=== PATIENT | female | born 2000 | race Caucasian/White ===

== ENCOUNTER 2025-04-07 08:16 | Outpatient (AMB) | payer BC, SELFPAY ==
--- NOTE | 2025-04-07 08:19 | A.OFFVIS_ITS ---
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 regarding abnormal Pap smear showing ascus-H with LGSIL changes in background, no prior Pap history. 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 Sexual orientation: Straight/Heterosexual Gender identity: Female Female Reproductive History Menstrual Age of Menarche: 12 Duration of menses: 3-5 days Date of last menstrual period: 03/08/25 control method: pills Total pregnancies: 0 Review of Systems Const All systems reviewed & are unremarkable except as noted in HPI and below Reports as per HPI and Reports no additional complaints GI Reports no additional complaints Reports no additional complaints Assessment & Plan Assessment & Plan (1) Atypical squamous cells cannot exclude high grade squamous intraepithelial lesion on cytologic smear of vagina (ASC-H): Comment: With LGSIL cells In background Code(s): R87.621 - Atypical squamous cells cannot exclude high grade squamous intraepithelial lesion on cytologic smear of vagina (ASC-H) Category: Medical Plan: Discussed with the patient the result of her abnormal pap, its significance, risk of progression, persistence, and regression. the false positive/negative rate of a Pap smear as a screening test in detecting cervical cancer and the indication for a diagnostic test -colposcopy, biopsy, endocervical curettage. The patient verbalized understanding and agreed with the plan, all questions answered. We will request the report of the Pap smear and schedule colposcopy in few days pending the receipt of the Pap smear report Coding Level of Care Code New Pt Level 3 (83958) Diagnoses Atypical squamous cells cannot exclude high grade squamous intraepithelial lesion on cytologic smear of vagina (ASC-H) R87.621
[2025-04-07 08:24] VITALS: BP 112/68; BMI 26.5
--- OUTSIDE RECORDS SUMMARY | 2025-04-07 08:39 | XMS_ITS | Patient Health Record ---
Author Organization [facility] Address [address] [place] [address] Care Team Providers Care Speech Language Pathologist Prn Name Role Phone KALE SANCHEZ [facility] [phone] Allergies Allergen (clinical drug ingredient) Drug/Non Drug Allergy documented on EMR Reaction Allergy Type Onset Date Status Shellfish (FN) shell fish (uncoded) Unknown Allergy Active Tree nut tree nut (uncoded) Unknown Allergy A ctive peanut allergenic extract Peanut (Diagnostic) Unknown Drug Allergy Active Results Component Value Reference Range Flag Notes IGP,rfx Apt HPV ASCU,16/18,4 Reviewed date:02/23/2025 01:39:22 PM Interpretation:ASC-H, LSIL background Performing Lab:[facility], [address] [place] [address], Phone - [phone], Director - [facility] Notes/Report: Clinical Information:SRC:Cervix [id number] DIAGNOSIS: A EPITHELIAL CELL ABNORMALITY. ATYPICAL SQUAMOUS CELLS CANNOT EXCLUDE A HIGH-GRADE SQUAMOUS INTRAEPITHELIAL LESION (ASC-H). 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 Specimen adequacy: Satisfactory for evaluation. Endocervical and/or squamous metaplastic cells (endocervical component) are present. Clinician provided ICD10: Z01.419 Z11.51 Performed by: Riddhi solorio, Education Spec (ASCP) Electronically signed by: Tigist Escobar MD, Pathologist . . Pathologist provided ICD10: R87.611, R87.612 Note: The Pap smear is a screening test designed to aid in the detection of premalignant and malignant conditions of the uterine cervix. It is not a diagnostic procedure and should not be used as the sole means of detecting cervical cancer. Both false-positive and false-negative reports do occur. . Test Methodology: This liquid based ThinPrep(R) pap test was screened with the use of an image guided system. . The HPV DNA reflex criteria were not met with this specimen result therefore, no HPV testing was performed. . PDF Report Reviewed date:03/02/2025 12:44:13 PM Interpretation:PDF Performing Lab:[facility], [address] [place] [address], Phone - [phone], Director - [facility] Notes/Report: Clinical Information:SRC:Cervix [id number] Ct/GC FRANCIA, Pharyngeal-[id number] Reviewed date:11/14/2024 08:52:30 AM Interpretation:Negative Performing Lab:[facility] [place], [address], [place], Phone - [phone], Director - [facility] Notes/Report: C. trachomatis, FRANCIA, Pharyn Negative Negative N. gonorrhoeae, FRANCIA, Pharyn Negative Negative HCV Antibody RFX to Quant PC [id number] Reviewed date:11/13/2024 03:50:50 PM Interpretation:Negative Performing Lab:[facility] [place], [address], [address], [place], Phone - [phone], Director - [facility] Notes/Report: HCV Ab Non Reactive Non Reactive Interpretation: Not infected with HCV unless early or acute infection is suspected (which may be delayed in an immunocompromised individual), or other evidence exists to indicate HCV infection. HIV Ab/p24 Ag with Reflex-[id number] Reviewed date:11/13/2024 03:51:06 PM Interpretation:Negative Performing Lab:[facility] [place], [address], [address], [place], Phone - [phone], Director - [facility] Notes/Report: HIV Ab/p24 Ag Screen Non Reactive Non Reactive HIV-1/HIV-2 antibodies and HIV-1 p24 antigen were NOT detected. There is no laboratory evidence of HIV infection. HIV Negative T pallidum Screening Whitley -[id number] Reviewed date:11/13/2024 03:51:14 PM Interpretation:Negative Performing Lab:[facility] [place], [address], [place], Phone - [phone], Director - [facility] Notes/Report: T pallidum Antibodies Non Reactive Non Reactive Interpretation: Syphilis: Treponemal Antibodies with Reflex to RPR and RPR Titer, Reverse Screening and Diagnosis Algorithm Treponemal Treponemal Ab RPR, Qn Ab, TPPA Final Interpretation -------- Non N/A N/A No laboratory evidence Reactive of syphilis. Retest in 2-4 weeks if recent exposure is suspected. -------- Reactive Non Non Treponemal antibodies Reactive Reactive not confirmed. Inconclusive for syphilis; potential early syphilis, possible false positive. Retest in 2-4 weeks if recent exposure is suspected. -------- Reactive Non Reactive Treponemal antibodies Reactive detected. Consistent with past or current (potential early) syphilis. -------- Reactive >/=1:1 N/A Treponemal and nontreponemal antibodies detected. Consistent with current or past syphilis. Hepatitis B Surf Ab Quant-[id number] Reviewed date:11/13/2024 03:44:27 PM Interpretation:Not Immune Performing Lab:[facility], [address], [address], [place], Phone - [phone], Director - [facility] Notes/Report: Hepatitis B Surf Ab Quant <3.5 Immunity>10 mIU/mL L Status of Immunity Anti-HBs Level Inconsistent with Immunity 0.0 - 10.0 Consistent with Immunity >10.0 HBsAg Screen-[id number] Reviewed date:11/13/2024 03:50:57 PM Interpretation:Negative Performing Lab:[facility] [place], [address], [address], [place], Phone - [phone], Director - [facility] Notes/Report: HBsAg Screen Negative Negative Test, Urine Reviewed date:11/12/2024 02:44:02 PM Interpretation:Negative Performing Lab: Notes/Report: Negative Test, Urine neg Lot # [id number] Exp. Date 08/18/2025 Reason For Referral Reason 24 yr old with first pap of ASC-H with low grade cell changes in background. No prior pap history. For colposcopy per guidelines. Diagnosis 1 Unspecified abnormal cytological findings in specimens from cervix uteri (R87.619) Referral Organization [facility] Referring Provider First Name KALE Referring Provider Last Name LAURA Referring Provider Speciality Certified Nurse Double End Trimmer Referred Provider Specialty Supply Coordinator General Notes KALE SANCHEZ 09:13:02 AM EDT > [facility] Clinical Notes Aliya Gonzalez 2024 12:14:50 PM EDT > referral printed and to be faxed Referral Priority Routine Medications Medication SIG (Take, Route, Frequency, Duration) Notes Start Date End Date Status Ortho Micronor 0.35 MG Tablet 1 tablet Orally Once a day; Duration: 84 days 11/12/2024 Active SUMAtriptan Active Venlafaxine HCl Acti ve Social History Sex Assigned At : Social History Observation Description Sex Assigned At Female Social History HIV Risk Assessment Social Info Question Answer Notes Additional Questions Is an HIV Risk Assessment being c onducted? Yes Have you been tested for HIV before? No Did you have a blood transfusion prior to 1985? No Do you have an unlicensed body piercing or tattoo? Yes Reproductive Life Plan: Social Info Question Answer Notes Reproductive Life Plan: Do you want to have chil dren? No, I don't want to have children Human Trafficking: Social Info Question Answer Notes Human Trafficking Experienced: No PrEP for HIV: Social Info Question Answer Notes PrEP for HIV Is the client edita hays in beginning/continuing PrEP for HIV? No Sexual History: Social Info Question Answer Notes Sexual History: Sexual History Reviewed: Partner s, Practices, Protection/Past STIs Currently sexually active? Yes Sexually active with: Men, Women Your sexual activities include: anal intercourse, oral intercourse, vaginal intercourse Do you use condoms? No Date of last unprotected intercourse: 02/09/2025 Number of partners in past 3 months: 8 Number of partners in past year: 12 Does your partner(s) currently have any STIs? No Counseling Provided: Social Info Question Answer Notes Counseling Provided Please indicate the length of time, in minutes, that counseling was provided. 8 Counseling Was Provided By: jean paul Drugs/Alcohol: Social Info Question Answer Notes Drug/Alcohol Use Do you or have you used drugs? Yes, c urrently By what route are you taking drugs? Please check all that apply: Smoking Which drug(s) do you smoke? Marijuana Do you or have you used alcohol? Yes, currently Socially Food Access: Social Info Question Answer Notes Food Access The Client's current access to food is Secure Food Access Relationships: Social Info Question Answer Notes Relationships Has the client exper ienced any of the following: Client has never experienced harmful relationships Housing Social Info Question Answer Notes Housing The client's current living situation is: stable housing Tobacco Use: Social Info Question Answer Notes Tobacco Use: Do you/have you used tobacco? Yes, radha degroot How long have you been smoking (years)? 7 not often How many cigarettes do you smoke per day? 0 - 10 Tobacco Smoking Status Current some day smoker Section Notes: Aptima/ bw Vital Signs Blood pressure diastolic 78 mm Hg 02/13/2025 Height 5'6 in 02/13/2025 Blood pressure systolic 118 mm Hg 02/13/2025 Weight 160 lbs 02/13/2025 BMI 25.82 kg/m2 02/13/2025 Encounters Encounter Location Date Provider Diagnosis [address] [id number] 11/12/2024 KALE SANCHEZ Encounter for scre ening for infections with a predominantly sexual mode of transmission Z11.3 ; Visit for initial script of pills Z30.011 ; Counseling, unspecified Z71.9 ; Other problems related to lifestyle Z72.89 ; Encounter for test, result negative Z32.02 ; HIV Screening Z11.4 and Encounter for screening for other [facility] [facility] [id number] 02/13/[facility]25 KALE SANCHEZ Encounter for gynecological examination (general) (routine) without abnormal findings Z01.419 ; Visit for pill refill/surveillance Z30.41 and HPV Pap Screening [facility]11.[address] [facility] [id number] [facility] [phone] 02/23/[facility]25 KALE SANCHEZ Assessments Encounter Date Diagnosis (ICD Code) Assessment Notes Treatment Notes Treatment Clinical Notes Section Notes 11/12/2024 Encounter for screening for infections with a predominantly sexual mode of transmission (ICD-10 - Z11.3) Discussed STI risks, screenings that are available through [facility] and safe sex. Clt aware of lab processing times and how to view results on portal and how positive results will be communicated Need 2 out of 3 Sections from A-C Section A) Problems (only need one from below) Section B) Data (need at least one of the following categories in this section) Category 1: (Choose three of the following): Order Unique tests Section C) Risk (any one of the following) Prescription drug management (this counts for the whole section) 11/12/2024 Visit for initial script of pills (ICD-10 - Z30.011) Discussed control options. CHC's CI'd due to migraines with aura. Clt desires POP's start. Reviewed benefits and risks. Clt aware of the time sensitivity of POP's. May quick start with BUM x 2 days Need 2 out of 3 Sections from A-C Section A) Problems (only need one from below) Section B) Data (need at least one of the following categories in this section) Category 1: (Choose three of the following): Order Unique tests Section C) Risk (any one of the following) Prescription drug management (this counts for the whole section) 02/13/2025 Encounter for gynecological examination (general) (routine) without abnormal findings (ICD-10 - Z01.419) Discussed routine screenings and self breast/chest awareness. Reviewed family hx of BR Cancer- I do recommend clt discuss genetic screening with mom and get more details of what they may have had done- clt may want to consider screening. Pap guidelines reviewed and pap collected. Routine screening in 3 years if normal Reviewed report of mild urgency/frequenc y- encouraged to stay hydrated and caution with bladder irritants such as caffeine/ETOH. If continued concerns around urgency/frequenc y can provide with uro/stationary engineer supervisor referral for further evaluation as well as can consider pelvic floor referral 02/13/2025 Visit for pill refill/surveillan ce (ICD-10 - Z30.41) Reviewed clt's experience with OCP use. No CI's to continue with current regimen. Year supply Rx sent. Plan for revisit in a year or sooner as needed. Reviewed clt's pill is a progestin only pill with no in active pills. Some people with time will stop getting their period. Their is another pill called Slynd that does have in active pills but can't guarantee that you will have amenorrhea with skipping though about 50% will. Clt would like to continue with current OCP for now. Reports mood changes aren't great but feel tolerable 02/13/2025 HPV Pap Screening (ICD-10 - Z11.51) 11/12/2024 Counseling, unspecified (ICD-10 - Z71.9) Need 2 out of 3 Sections from A-C Section A) Problems (only need one from below) Section B) Data (need at least one of the following categories in this section) Category 1: (Choose three of the following): Order Unique tests Section C) Risk (any one of the following) Prescription drug management (this counts for the whole section) 11/12/2024 Other problems related to lifestyle (ICD-10 - Z72.89) Need 2 out of 3 Sections from A-C Section A) Problems (only need one from below) Section B) Data (need at least one of the following categories in this section) Category 1: (Choose three of the following): Order Unique tests Section C) Risk (any one of the following) Prescription drug management (this counts for the whole section) 11/12/2024 Encounter for test, result negative (ICD-10 - Z32.02) Need 2 out of 3 Sections from A-C Section A) Problems (only need one from below) Section B) Data (need at least one of the following categories in this section) Category 1: (Choose three of the following): Order Unique tests Section C) Risk (any one of the following) Prescription drug management (this counts for the whole section) 11/12/2024 HIV Screening (ICD-10 - Z11.4) Need 2 out of 3 Sections from A-C Section A) Problems (only need one from below) Section B) Data (need at least one of the following categories in this section) Category 1: (Choose three of the following): Order Unique tests Section C) Risk (any one of the following) Prescription drug management (this counts for the whole section) 11/12/2024 Encounter for screening for other viral diseases (ICD-10 - Z11.59) Need 2 out of 3 Sections from A-C Section A) Problems (only need one from below) Section B) Data (need at least one of the following categories in this section) Category 1: (Choose three of the following): Order Unique tests Section C) Risk (any one of the following) Prescription drug management (this counts for the whole section) Plan Of Treatment No Information Insurance Providers Payer Name Payer Address Payer Phone Subscriber Number Group Number Insured Name Patient Relationship to Insured Coverage Start Date Coverage End Date [employer] [address] [place] [address] [id number] Trang Rojas Self - patient is the insured Medical (General) History Medical History History ICD Code Migraines with aura Anxiety
--- OUTSIDE RECORDS SUMMARY | 2025-04-07 08:39 | XMS_ITS | Clinical Summary ---
Author Organization [facility] Address [address] [place] [address] Phone Care Team Providers Care Asset Protection Officer Name Role Phone Azalia Iraheta MANDREL CLEANER Unavailable Justo Sepulveda DO Primary Care Provider Allergies Active Allergy Reactions Criticality Noted Date Comments Lactose 02/10/2018 Peanut 02/10/2018 Shellfish Containing Products Wheezing 2020 Tree Nuts Wheezing 08/25/2020 Medications EPINEPHrine 0.3 mg/0.3 mL auto-injectorIn dications:Food allergy Inject 0.3 mg into the muscle as needed. Active testosterone cypionate (DEPO-TESTOTERO NE) 200 mg/mL injection INJECT 0.3 ML (60 MG TOTAL) INTO THE MUSCLE EVERY 7 DAYS. DOSE INCREASE 2 mL 2 06/08/2022 Active Active Problems Problem Noted Date Diagnosed Date Mixed obsessional thoughts and acts 01/01/2022 Mood disorder 01/01/2022 Assessment & Plan (01/01/2022 9:51 PM EDT): Patient with potentially undiagnosed mood disorder, has been seeing therapist, but would like to see psychiatrist as well. Order placed today. Transgender person on hormone therapy 07/06/2021 Assessment & Plan (01/01/2022 9:44 PM EDT): Follows with transgender clinic in [place], currently on testosterone therapy. Still having menstrual cycles currently but less frequently and less intense. Headache 01/19/2006 Overview (07/25/2014): Headache; c/w migraines Migraine Assessment & Plan (01/01/2022 9:44 PM EDT): Patient with history of migraines, may be more tension headaches than migraines, however does seem to have a hormonal component which could go along with migraine. Advised to keep headache journal to help identify patterns. Current frequency not enough to require controller medication, has been able to control migraines with OTC medications thus far. Consider head imaging in the future if red flag symptoms surface. Food allergy Assessment & Plan (01/01/2022 9:46 PM EDT): Patient with food allergies that cause wheezing and airway tightness. Advised patient to have EpiPen. Feel there is little utility in having allergy testing as patient knows which foods are triggers, and it would make no difference in treatment recommendation based on prior symptoms at this time. Could consider in the future if there is question of new allergy. Resolved Problems Problem Noted Date Diagnosed Date Resolved Date Routine health maintenance 08/25/2020 0 12/30/2021 Assessment & Plan (08/25/2020 6:11 PM EDT): Doing well. Pt declined bloodwork today. Last bloodwork 2019, NL. Seeing counselor for anxiety. 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 Pt declined today, but will RTC. Urine test today. Immunizations Immunization Administration Dates Next Due DTaP, unspecified formulation 12/26/2002 ,03/23/2000,06/30/1999,04/29,02/21/1999 [id number] FORMULATION 04/23/2009 HPV,quadrivalent 08/04/2013,03/28/2013, 3 Hepatitis A, ped/adol, 2 dose 01/03/2017 Hepatitis B, unspecified formulation ,12/29/1999,09/23/1999,06/30 Hib, unspecified formulation 03/23/2004, 06/30/1999,04/29/1999,02/21 INFLUENZA, SPLIT VIRUS, TRIVALENT PF 03/22/2012 INFLUENZA, SPLIT VIRUS, TRIV ALENT W/ PRESERVATIVE IM 03/28/2013 Influenza Quadrivalent MDCK Preservative Free IM 03/04/2021,05/16/2018 Influenza Quadrivalent Pedia tric Preservative Free IM 03/29/2017 Influenza Quadrivalent Prese rvative Free IM 03/12/2020,03/18/2019,02/26/2015 Influenza, Unspecified Formulation 04/01,01/17/2013(Deferred: Patient Decision),03/23/2011,03/02/2010,2008,03/26/2008 MMR 12/26/2002,12/29/1999 Meningococcal B, OMV (MenB-4C) 04/19/2017 Meningococcal MCV4O 06/14/2015 Meningococcal MCV4P 12/28/2009 Pneumococcal conjugate, PCV 7 07/26/2000 Polio, Unspecified Formulation 3,12/29/1999,04/29/1999,02/21 Tdap 12/28/2009 Varicella 01/28/2007,12/29/1999 Family History Medical History Relation Comments No Known Problems Father Breast cancer Mother breast cancer Migraines Mother Migraine headach e Breast cancer Paternal Aunt Breast cancer Paternal Grandmother No Known Problems Sister 1 No Known Problems Sister 2 Relation Status Comments Father Alive Mother Alive Paternal Aunt Paternal Grandmother Sister 1 Alive Sister 2 Alive Social History Tobacco Use Types Packs/Day Years Used Date Smoking Tobacco: Every Day Cigarettes 0.3 5.8 Started: 2019 Smokeless Tobacco: Never Alcohol Use Standard Drinks/Week Comments Yes 3 (1 standard drink = 0.6 oz pur e alcohol) occassionally Child or Family Care Answer Date Record ed Do you have problems with on e of the following making it difficult for you to work, study, or receive health care? No 12/27/2021 Education Answer Date Recorded Are you interested in more education? Not on lillian e 12/30/2023 Are you concerned about learning? Not on file 12/30/2023 No 12/30/2023 No 12/30/2023 Food Answer Date Recorded Within the past 6 months we worried whether our food would run out before we got money to buy more. Never True 12/27/2021 Within the past 6 months the food we bought just didn't last and we didn't have enough money to get more. Never True Residential Stability Answer Date Recor ded What is your housing situation today? I have iris ramey 12/27/2021 How many times have you moved in the past 12 mon ths? One time 12/27/2021 06 Are you worried that in t he next 2 months, you may not have your own housing to live in? No 12/27/2021 Paying for Meds Answer Date Recorded Do you have trouble paying for medicines? No 12/27/2021 Paying Utility Bills Answer Date Record ed Do you have trouble paying your heating or elect ricity bill? No 12/27/2021 Transportation Answer Date Recorded Has the lack of transportati on kept you from medical appointments or from getting medications? No 12/27/2021 Unemployment Answer Date Recorded Are you currently unemployed or working on a part-time or temporary basis, and looking for work? No 12/27/2021 Digital Access Answer Date Recorded No 10/28/2022 No 10/28/2022 No 10/28/2022 Reliable internet access at home? Not on file 10/28/2022 Device with a working camera? Not on file Comments No Sex and Gender Information Value Date Recorded Sex Assigned at Female 10/07/2017 3:24 AM EDT Legal Sex Female 5:40 PM EST Gender Identity Questioning/Unsure 05/06/2021 11 :12 AM EST Sexual Orientation Queer 06/02/2019 1: 03 PM EST Occupation Industry Job Start Date Job End Date Student Not on file Not on file Not on file Last Filed Vital Signs Vital Sign Reading Time Taken Comments Blood Pressure 124/78 12/30/2021 12:58 PM EDT Pulse 64 12/30/2021 12:58 PM EDT Temperature 36.8 C (98.3 F) 12/30/2021 12:58 PM EDT Respiratory Rate 16 01/23/2020 12:00 AM EDT Oxygen Saturation 98% 12/30/2021 12:58 PM EDT Inhaled Oxygen Concentration - - Weight 56.2 kg (124 lb) 12/30/2021 12:58 PM EDT Height 167.6 cm (5' 6 ) 12/30/2021 12:58 PM EDT Body Mass Index 20.01 12/30/2021 12:58 PM EDT Plan of Treatment Health Maintenance Due Date Last Done Comments SMOKING Hx and SMOKELESS TOBACCO SCREENING 12/21/2011 HEPATITIS C SCREENING 2016 HIV ONE-TIME SCREENING (18-65 YEARS) 2016 HEPATITIS A VACCINES (2 of 2 - 2-dose series) 07/06/2017 01/03/2017 MENINGOCOCCAL VACCINES (B) (2 of 2 - Bexsero SCDM 2-dose series) 10/17/2017 04/19/2017 PNEUMOCOCCAL VACCINES (0-49 years) (1 of 2 - PCV) 2017 07/26/2000 PAP SMEAR 12/21/2019 Adult Td,Tdap Booster 12/29/2019 12/28/2009 DEPRESSION SCREENING 12/28/2022 12/28/2021 INFLUENZA VACCINE (#1) 2025 , 03/04/2021, 04/01/2020, Additional history exists COVID-19 VACCINE ( season) 2025 04/13/2021, 09/23/2020, 08/31/2020 HIB VACCINES Aged Out 03/23/2004, 06/05, 04/29/1999, Additional history exists No longer eligible based on patient's age to complete this topic HPV VACCINES Completed 08/04/2013, 03/05, 01/17/2013 MENINGOCOCCAL VACCINES (ACWY) Completed 06/14/2015, 12/28/2009 Medical Devices Not on file Insurance [employer] HMO POS EPO O POS EPO POS EPO Care Teams Asset Protection Officer Relationship Specialty Start Date End Date Justo Sepulveda DO [address] [place] [address], [address] [place] [address] PCP - General Internal Medicine 12/30/21 Azalia Iraheta FNP [address] [place] [id number] Nurse Practitioner Family Medicine 06/28/21 Additional Source Comments The information contained in this document represents components of the legal health record. It is not the complete legal health record.[facility]
== END 2025-04-07 08:41 | disposition home or self-care (01) ==
LOC: HO.HWS 08:16
PROVIDERS: PCP Advanced Practice Midwife; Visit Provider Obstetrics & Gynecology
DX: R87.621 Atypical squamous cells cannot exclude high grade squamous intraepithelial lesion on cytologic smear of vagina (ASC-H) (principal)
CPT/HCPCS: 99203

== ENCOUNTER 2025-04-09 08:04 | Outpatient (AMB) | payer BC, SELFPAY ==
--- NOTE | 2025-04-09 08:12 | MHC.OFFVIS ---
Vital Signs 04/09/25 08:19 Height 5 ft 6 in Weight 164 lb BMI 26.5 Intake Visit Reasons: Colposcopy Application Support Intern Required: No Information Interpreted: non-clinical & clinical Electrical Plumbing Supervisor: Electrical Plumbing Supervisor Present (Desire CHACON) Accompanied by: Self / Same As Patient Allergies No Known Allergies Allergy (Verified 04/07/25 08:25) HPI Comments Details: Presenting for abnormal Pap done on 02/18/2025 showing ASC-H background of LSIL [facility] Medical History OCD (obsessive compulsive disorder) Anxiety Migraine Family History Mother Breast cancer Paternal Grandmother Breast cancer Paternal Aunt Breast cancer Social History Household Members Other:: roomate Housing: Apartment Alcohol intake: current Alcohol intake frequency: holidays/special occasions only Patient Tobacco Use Status: Never used Tobacco Substance Use Type: Marijuana Current occupational status: employed 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 We thoroughly discussed the procedure itself, including its details, alternatives, and all associated risks. This included but not limited to the following complications such as bleeding, infection, and injury to the vagina, bladder, and vessels, as well as the potential need for transfusion with all its associated risks. Subsequently, the patient sign the consent. Pap smear result: Ask-H with background the of LSIL. Urine test in office = Negative Procedure: During the procedure, the following steps were performed: A speculum was inserted, and acetic acid was applied. Colposcopy was conducted, allowing visualization of the transformation zone. Acetowhite lesions were identified at the 5+ 6+ 7+ 9+ 11+ 12+ 1+3 o'clock position. Cervical biopsies were obtained from the 5+ 6+ 7+ 9+ 11+ 12+ 1+3 o'clock position, followed by an endocervical curettage (ECC). Vaginoscopy of the upper vagina revealed no evidence of aceto-white lesions. Hemostasis was achieved using Monsel solution, and the patient tolerated the procedure well. Post-Procedure Instructions: The patient was advised to promptly contact the office or the after hours answering service or go to the emergency room if experiencing a temperature exceeding 100.4?F, abdominal pain, nausea/vomiting, or bleeding. Additionally, the patient was instructed to abstain from vaginal intercourse and bathtub use. The patient confirmed understanding of these instructions. Discharge Instructions: The patient was instructed to schedule a follow-up appointment in 2 weeks for further evaluation and management. Please note that this note was generated using a voice recognition program, and errors may have occurred during him coder. 24291-Weodmzldo of cervix including upper vagina with biopsy and ECC Procedure code (CPT) selection complete Assessment & Plan Assessment & Plan (1) Atypical squamous cells cannot exclude high grade squamous intraepithelial lesion on cytologic smear of vagina (ASC-H): Comment: With LGSIL cells In background Code(s): R87.621 - Atypical squamous cells cannot exclude high grade squamous intraepithelial lesion on cytologic smear of vagina (ASC-H) Category: Medical Plan: Discussed with the patient the result of her abnormal pap, its significance, risk of progression, persistence, and regression. the false positive/negative rate of a Pap smear as a screening test in detecting cervical cancer and the indication for a diagnostic test -colposcopy, biopsy, endocervical curettage. The patient verbalized understanding and agreed with the plan, all questions answered. Colposcopy, biopsy /ECC done, see procedure note Orders: Orders AMB HCG Urine Test Today Z32.02 - Encounter for test, result negative AMB Colposcopy Today R87.621 - Atypical squamous cells cannot exclude high grade squamous intraepithelial lesion on cytologic smear of vagina (ASC-H) Coding Level of Care Code Procedure Only Diagnoses Atypical squamous cells cannot exclude high grade squamous intraepithelial lesion on cytologic smear of vagina (ASC-H) R87.621 CPT Codes Colposcopy - CPT: 44197-Eeyzthrph of cervix including upper vagina with biopsy and ECC ([id number])
--- OUTSIDE RECORDS SUMMARY | 2025-04-09 08:17 | XMS_ITS | Patient Health Record ---
Author Organization [facility] Address [address] [place] [address] Care Team Providers Care General Cleaner Name Role Phone KALE SANCHEZ [facility] [phone] Allergies Allergen (clinical drug ingredient) Drug/Non Drug Allergy documented on EMR Reaction Allergy Type Onset Date Status Shellfish (FN) shell fish (uncoded) Unknown Allergy Active Tree nut tree nut (uncoded) Unknown Allergy A ctive peanut allergenic extract Peanut (Diagnostic) Unknown Drug Allergy Active Results Component Value Reference Range Flag Notes IGP,rfx Apt HPV ASCU,16/18,4 Reviewed date:02/23/2025 01:39:22 PM Interpretation:ASC-H, LSIL background Performing Lab:[facility], [address] [place] [address], Phone - [phone], Director - [facility] Notes/Report: Clinical Information:SRC:Cervix [id number] DIAGNOSIS: A EPITHELIAL CELL ABNORMALITY. ATYPICAL SQUAMOUS CELLS CANNOT EXCLUDE A HIGH-GRADE SQUAMOUS INTRAEPITHELIAL LESION (ASC-H). 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 Specimen adequacy: Satisfactory for evaluation. Endocervical and/or squamous metaplastic cells (endocervical component) are present. Clinician provided ICD10: Z01.419 Z11.51 Performed by: Riddhi solorio, Aircraft Cylinder Mechanic (ASCP) Electronically signed by: Tigist Escobar MD, [...] therefore, no HPV testing was performed. . Hepatitis B Surf Ab Quant-[id number] Reviewed date:11/13/2024 03:44:27 PM Interpretation:Not Immune Performing Lab:[facility] [place], [address], [address], [email or web address], Phone - [phone], [facility] Notes/Report: Hepatitis B Surf Ab Quant <3.5 Immunity>10 mIU/mL L Status of Immunity Anti-HBs Level Inconsistent with Immunity 0.0 - 10.0 Consistent with Immunity >10.0 HBsAg Screen-[id number] Reviewed date:11/13/2024 03:50:57 PM Interpretation:Negative Performing Lab:[facility], [address], [address], [email or web address], Phone - [phone], [facility] Notes/Report: HBsAg Screen Negative Negative HIV Ab/p24 Ag with Reflex-[id number] Reviewed date:11/13/2024 03:51:06 PM Interpretation:Negative Performing Lab:[facility] [place], [address], [address], [email or web address], Phone - [phone], [facility] Notes/Report: HIV Ab/p24 Ag Screen Non Reactive Non Reactive HIV-1/HIV-2 antibodies and HIV-1 p24 antigen were NOT detected. There is no laboratory evidence of HIV infection. HIV Negative T pallidum Screening Bradley -[id number] Reviewed date:11/13/2024 03:51:14 PM Interpretation:Negative Performing Lab:[facility], [address], [address], [email or web address], Phone - [phone], [facility] Notes/Report: T pallidum Antibodies Non Reactive Non [...] detected. Consistent with current or past syphilis. Ct/GC FRANCIA, Pharyngeal-[id number] Reviewed date:11/14/2024 08:52:30 AM Interpretation:Negative Performing Lab:[facility], [address] [employer], [address], [email or web address], Phone - [phone], Director - [facility] Notes/Report: C. trachomatis, FRANCIA, Pharyn Negative Negative N. gonorrhoeae, FRANCIA, Pharyn Negative Negative HCV Antibody RFX to Quant PC [id number] Reviewed date:11/13/2024 03:50:50 PM Interpretation:Negative Performing Lab:[facility], [address], [place], Phone - [phone], [facility] Notes/Report: HCV Ab Non Reactive Non Reactive Interpretation: Not infected with HCV unless early or acute infection is suspected (which may be delayed in an immunocompromised individual), or other evidence exists to indicate HCV infection. Test, Urine Reviewed date:11/12/2024 02:44:02 PM Interpretation:Negative Performing Lab: Notes/Report: Negative Test, Urine neg Lot # [id number] Exp. Date 08/18/2025 PDF Report Reviewed date:03/02/2025 12:44:13 PM Interpretation:PDF Performing Lab:[facility], [address] [place] [address], Phone - [phone], [facility]/Report: Clinical Information:SRC:Cervix [id number] Reason For Referral Reason 24 yr old with first pap of ASC-H with low grade cell changes in background. No prior pap history. For colposcopy per guidelines. Diagnosis 1 Unspecified abnormal cytological findings in specimens from cervix uteri (R87.619) Referral Organization [facility] Referring Provider First Name KALE Referring Provider Last Name LAURA Referring Provider Speciality Certified Nurse Reconciliation Manager Referred Provider Specialty Sales Marketing General Notes KALE SANCHEZ 09:13:02 AM EDT > Prefers to go to [facility] [address]. Clinical Notes Aliya Gonzalez 2024 [...] 02/13/2025 Encounters Encounter Location Date Provider Diagnosis [address] [id number] 11/12/2024 KALE SANCHEZ Encounter for scre ening for infections with a predominantly sexual mode of transmission Z11.3 ; Visit for initial script of pills Z30.011 ; Counseling, unspecified Z71.9 ; Other problems related to lifestyle Z72.89 ; Encounter for test, result negative Z32.02 ; HIV Screening Z11.4 and Encounter for screening for other [facility] diseases Z11.[facility] [id number] 02/13/2025 KALE SANCHEZ Encounter for gynecological examination (general) (routine) without abnormal findings Z01.419 ; Visit for pill refill/surveillance Z30.41 and HPV Pap Screening Z11.51 [facility] [id number] 02/13/2025 [facility] [id number] 02/23/2025 KALE SANCHEZ Assessments Encounter Date Diagnosis [...] concerns around urgency/frequenc y can provide with uro/solution make up operator referral for further evaluation as well as [...] Coverage End Date [employer] [address] [place] [address] [id number] Trang Rojas Self - patient is the insured Medical (General) History Medical History History ICD Code Migraines with aura Anxiety
--- OUTSIDE RECORDS SUMMARY | 2025-04-09 08:18 | XMS_ITS | Clinical Summary ---
Author Organization [facility] Address [address] [place] [phone] Phone Care Team Providers Care Quality Process Auditor Name Role Phone Azalia Iraheta ACCOUNTING RECRUITER Unavailable Justo Sepulveda DO Primary Care Provider [...] PM EDT): Follows with transgender clinic in [place], currently on testosterone therapy. Still having menstrual [...] Seeing counselor for anxiety. 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 Pt declined today, but will RTC. Urine test today. Immunizations Immunization Administration Dates Next Due DTaP, unspecified formulation 12/26/2002 ,03/23/2000,06/30/1999,04/29,02/21/1999 [id number] FORMULATION 04/23/2009 HPV,quadrivalent 08/04/2013,03/28/2013, 3 Hepatitis A, [...] O POS EPO POS EPO Care Teams Quality Process Auditor Relationship Specialty Start Date End Date Justo Sepulveda DO [address] [place] [address], [address] [place] [address] PCP - General Internal Medicine 12/30/21 Azalia Iraheta FNP [address] [place] [id number] Nurse Practitioner Family Medicine 06/28/21 Additional Source Comments The information contained in this document represents components of the legal health record. It is not the complete legal health record.[facility]
[2025-04-09 08:19] VITALS: BMI 26.5
== END 2025-04-09 08:36 | disposition home or self-care (01) ==
LOC: HO.HWS 08:04
PROVIDERS: PCP Advanced Practice Midwife; Visit Provider Obstetrics & Gynecology
DX: R87.621 Atypical squamous cells cannot exclude high grade squamous intraepithelial lesion on cytologic smear of vagina (ASC-H) (principal); Z32.02 Encounter for pregnancy test, result negative
CPT/HCPCS: 57454

== ENCOUNTER 2025-04-09 08:04 | Outpatient (REF) | payer BC, SELFPAY | END 2025-04-09 08:05 | disposition home or self-care (01) | LOC: HO.LNP 08:04 | PROVIDERS: PCP Advanced Practice Midwife; Visit Provider Obstetrics & Gynecology | DX: R87.621 Atypical squamous cells cannot exclude high grade squamous intraepithelial lesion on cytologic smear of vagina (ASC-H) (principal); Z32.02 Encounter for pregnancy test, result negative | CPT/HCPCS: 57454; 81025; 88305 ==

== ENCOUNTER 2025-05-12 11:59 | Outpatient (AMB) | payer BC, SELFPAY ==
[2025-05-12 12:11] VITALS: BMI 26.5
--- NOTE | 2025-05-12 12:11 | A.OFFVIS_ITS ---
Vital Signs 05/12/25 12:11 Height 5 ft 6 in Weight 164 lb BMI 26.5 Intake Visit Reasons: Colpo results Plastic Surgery Manager Required: No Information Interpreted: non-clinical & clinical Boom Boss: Boom Boss Present Accompanied by: Self / Same As Patient Allergies No Known Allergies Allergy (Verified 05/12/25 12:12) Is last menstrual period known: Yes Last menstrual period: 04/01/20 Post menopausal: No Patient : No Do you need a note to return to daycare/school/sports/work: Yes (for surgery on sunday) HPI Comments Details: Presenting post colpo for follow-up. The patient is doing well with no complaints. The pathology showed the following: A. Endocervix, curettage: Small superficial fragments of endocervical and squamous epithelium within normal limits. B. Cervix, 1 o'clock, biopsy: - Mildly inflamed endocervical mucosa with reactive changes. - No squamous epithelium identified. C. Cervix, 3 o'clock, biopsy: - Mildly inflamed endocervical mucosa with reactive changes. - No squamous epithelium identified. D. Cervix, 5 o'clock, biopsy: - Low-grade squamous intraepithelial lesion (KARMEN 1). - Background inflamed cervical transformation zone mucosa. E. Cervix, 6 o'clock, biopsy: - Low-grade squamous intraepithelial lesion (KARMEN 1). - Background inflamed cervical transformation zone mucosa. F. Cervix, 7 o'clock, biopsy: - Low-grade squamous intraepithelial lesion (KARMEN 1). - Background inflamed cervical transformation zone mucosa. G. Cervix, 9 o'clock, biopsy: Inflamed squamous and endocervical mucosa with reactive changes. H. Cervix, 11 o'clock, biopsy: Inflamed squamous and endocervical mucosa with reactive changes. I. Cervix, 12 o'clock, biopsy: - Mildly inflamed endocervical mucosa with reactive changes. - No squamous epithelium identified. COMMENT: The patient's reported history of LSIL and ASC-H is noted. 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 Sexual orientation: Straight/Heterosexual Gender identity: Female Female Reproductive History Menstrual Age of Menarche: 12 Date of last menstrual period: 04/01/20 Total pregnancies: 2 Full term: 2 Review of Systems Card Reports as per HPI and Reports no additional complaints Resp Reports as per HPI and Reports no additional complaints GI Reports as per HPI and Reports no additional complaints Reports as per HPI Physical Exam Vital Signs: BMI result Body Mass Index 26.5 Const General: cooperative, healthy appearing and comfortable Resp Effort & Inspection: normal respiratory effort Auscultation: clear to auscultation bilaterally Percussion: percussion normal Cardio Palpation: normal PMI Rate: regular rate Rhythm: regular rhythm Heart sounds: no murmurs and no rubs Peripheral pulses: Peripheral pulses 2+ throughout GI Inspection: Yes normal to inspection Palpation (GI): Soft to palpation, nontender, no guarding, not rigid and No hepatosplenomegaly present Percussion: Yes normal to percussion Auscultation: normal bowel sounds Rectal Exam - Female: deferred Assessment & Plan Assessment & Plan (1) KARMEN I (cervical intraepithelial neoplasia I): Comment: Preceded by ASC-H with LSIL Code(s): N87.0 - Mild cervical dysplasia Category: Medical Plan: Discussed with the patient the pathology results of the colposcopy biopsies & endocervical curettage ( mild dysplasia-KARMEN 1). Discussed with the patient the sensitivity specificity, positive and negative predictive value in detecting cervical cancer in addition discussed the regression, persistence and progression rates. The patient has of treatment discussed with the patient included the following Co testing 12 w versus diagnostic excision procedure. All pros and cons, risks and benefits of each were discussed with the patient, the patient has signed to proceed with LEEP possible cone with post cone ECC. Will proceed with LEEP cone was post cone ECC. Discussed with the patient the procedure, its benefits and risks including bleeding, infection, possible need for blood transfusion with all its risk ( HIV, syphilis, Hepatitis, anaphylaxis shock, others..), injury to bladder, rectum, possible re-excision for positive margins, potential need for hysterectomy, possible future negative impact on fertility including ( cervical stenosis, incompetence , increase risk for c section 2ndary to cervical scarring and failure of dilatation), possible positive margin necessitating re-excision. Also discussed the patient options of anesthesia either paracervical block versus IV sedation/MAC, prefers to proceed with IV sedation/MAC. Instructions given the patient to stay NPO after midnight the day before the procedure. All questions answered, the patient verbalized understanding and signed the consent. Coding Level of Care Code Est Pt Level 3 (96773) Diagnoses KARMEN I (cervical intraepithelial neoplasia I) N87.0
== END 2025-05-12 13:30 | disposition home or self-care (01) ==
LOC: HO.HWS 11:59
PROVIDERS: PCP Advanced Practice Midwife; Visit Provider Obstetrics & Gynecology
DX: N87.0 Mild cervical dysplasia (principal)
CPT/HCPCS: 99213

== ENCOUNTER → 2025-05-22 07:57 | Day surgery (SDC) | payer BC, SELFPAY ==
--- OUTSIDE RECORDS SUMMARY | 2024-12-30 09:00 | XMS_ITS ---
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 Name Role Phone Janette Robledo Unavailable [phone] REASON FOR VISIT annual with pap Social History Sex Assigned At : Social History Observation Description Sex Assigned At Female Encounters Encounter Location Date Provider Diagnosis [facility] [address] [place] [address] [place], [place] [id number] 12/30/2024 Janette Robledo Plan Of Treatment No Information Progress Notes * Trang BARROSODOB: [birth year] (24 yo F)Acc No.[id number]:12/30/2024 Progress Note Patient: Trang Crowe Provider: Yuniel Robledo CNM :2000 A ge:24 Y S ex:Female Date:12/30/2024 [address] [id number] Subjective: * Chief Complaints: * A nnual with pap * Electronic signature of Diana Robledo CNM on 05/21/2025 at 12:42 PM EST Sign off status: Pending * Provider: Yuniel Robledo CNM Date: 0 12/30/2024 Generated for Latishai ng/Fajeff/eTransmitting on: 1 07/22/2024 12:42 PM EST
[2025-05-20 07:44] VITALS: BMI 26.5
--- NOTE | 2025-05-21 12:09 | HO.ANESPROP2 ---
HPI - Anesthesia Eval Consult details Narrative: 24yo F for LEEP,poss loop electric excision,poss loop electrical,cone and post endocervical curettage PMFSH Active Problems Active Problems: All Active Problems KARMEN I (cervical intraepithelial neoplasia I) (Acute) Atypical squamous cells cannot exclude high grade squamous intraepithelial lesion on cytologic smear of vagina (ASC-H) (Acute) Past Medical History Medical History OCD (obsessive compulsive disorder) Anxiety Migraine Family History Family History Mother Breast cancer Paternal Grandmother Breast cancer Paternal Aunt Breast cancer Social History Social History Household Members Other:: roomate Housing: Apartment Alcohol intake: current Alcohol intake frequency: holidays/special occasions only Patient Tobacco Use Status: Never used Tobacco Substance Use Type: Marijuana Current occupational status: employed 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 Sexual orientation: Straight/Heterosexual Gender identity: Female Meds Allergies Allergy/AdvReac Type Severity Reaction Status Date / Time No Known Allergies Allergy Verified 05/12/25 12:12 Home Medications ?Medication ?Instructions ?Recorded ?Confirmed ?Last Taken ?Type norethindrone (contraceptive) 0.35 0.35 mg PO DAILY 04/07/25 05/20/25 Unknown History mg tablet sumatriptan succinate 50 mg tablet 50 mg PO DAILY 04/07/25 05/20/25 Unknown History venlafaxine 75 mg capsule,extended 75 mg PO DAILY 04/07/25 05/20/25 Unknown History release 24 hr Exam Height,Weight and Vital Signs: Height 5 ft 6 in Weight 74.389 kg Assessment and Plan Assessment Anesthesia Assessment: Chart Reviewed
--- OUTSIDE RECORDS SUMMARY | 2025-05-21 12:43 | XMS_ITS | Clinical Summary ---
Author Organization [facility] Address [address] [place] [phone] Phone Care Team Providers Care Veneer Department Manager Name Role Phone Azalia Iraheta ACCIDENT REPORT CLERK Unavailable [phone] Justo Sepulveda DO Primary Care Provider Allergies [...] PM EDT): Follows with transgender clinic in [place], currently on testosterone therapy. Still having menstrual [...] Seeing counselor for anxiety. Recommend RTC for [employer]SEM[employer] exam, discussed SBE and explained pap smear. Pt declined today, but will RTC. Urine test today. Immunizations Immunization Administration Dates Next Due DTaP, unspecified formulation 12/26/2002 ,03/23/2000,06/30/1999,04/29,02/21/1999 [id number] FORMULATION 04/23/2009 HPV,quadrivalent 08/04/2013,03/28/2013, 3 Hepatitis A, [...] Date Smoking Tobacco: Every Day Cigarettes 0.3 6 Started: 2019 Smokeless Tobacco: Never Alcohol Use [...] - PCV) 2017 07/26/2000 PAP SMEAR 12/21/2019 DEPRESSION SCREENING 12/28/2022 12/28/2021 COVID-19 VACCINE ( - season) 2025 04/13/2021, 09/23/2020, 08/31/2020 Adult Td,Tdap Booster 02/20/2033 02/20/2023, 010 HIB VACCINES Aged Out 03/23/2004, 06/05, 04/29/1999, Additional history exists No longer eligible based on patient's age to complete this topic HPV VACCINES Completed 08/04/2013, 03/05, 01/17/2013 MENINGOCOCCAL VACCINES (ACWY) Completed 06/14/2015, 12/28/2009 INFLUENZA VACCINE Completed 01/21/2025, , 03/04/2021, Additional history exists Medical Devices Not on file Procedures Procedure Name Priority Date/Time Associated Diagnosis Comments URINE SEDIMENT Routine 04/20/2025 2:16 PM EST Frequency of urination Anxiety Other migraine without status migrainosus, not intractable URINALYSIS WITH REFLEX TO URINE CULTURE Routine 04/20/2025 2:16 PM EST Frequency of urination Anxiety Other migraine without status migrainosus, not intractable CBC AND DIFFERENTIAL Routine 04/20/2025 1:54 PM EST Frequency of urination Anxiety Other migraine without status migrainosus, not intractable VITAMIN B12 Routine 04/20/2025 1:54 PM EST Frequency of urination Anxiety Other migraine without status migrainosus, not intractable IRON AND IRON BINDING CAPACITY Routine 04/20/2025 1:54 PM EST Frequency of urination Anxiety Other migraine without status migrainosus, not intractable FERRITIN Routine 04/20/2025 1:54 PM EST Frequency of urination Anxiety Other migraine without status migrainosus, not intractable FOLATE Routine 04/20/2025 1:54 PM EST Frequency of urination Anxiety Other migraine without status migrainosus, not intractable CBC AND DIFFERENTIAL Routine 04/20/2025 1:54 PM EST Frequency of urination Anxiety Other migraine without status migrainosus, not intractable 25-OH VITAMIN D Routine 04/20/2025 1:54 PM EST Frequency of urination Anxiety Other migraine without status migrainosus, not intractable TSH WITH REFLEX Routine 04/20/2025 1:54 PM EST Frequency of urination Anxiety Other migraine without status migrainosus, not intractable COMPREHENSIVE METABOLIC PANEL (CMP) Routine 04/20/2025 1:54 PM EST Frequency of urination Anxiety Other migraine without status migrainosus, not intractable from Last 3 Months Results * (ABNORMAL) Urinalysis with Reflex to Urine Culture (04/20/2025 2:16 PM EST) Color Yellow Yellow 04/20/2025 7:10 PM EST [facility] Clarity Clear Clear 04/20/2025 7:10 PM EST [facility] Glucose Negative Negative 04/20/2025 7:10 PM EST [facility] Bilirubin Urine Negative Negative 7:10 PM EST [facility] Ketone Urine Trace(A) Negative 04/20/2025 7:10 PM EST [facility] Specific [place] 1.010 1.001 - 1.035 04/20/2025 7:10 PM EST [facility] Blood 2+(A) Negative 04/20/2025 7:10 PM [facility] pH 6.5 5.0 - 8.0 04/20/2025 7:10 PM [facility] Protein Negative Negative 04/20/2025 7:10 PM [facility] Nitrites Negative Negative 04/20/2025 7:10 PM [facility] Leukocyte Esterase 2+(A) Negative 04/20/2025 7:10 PM [facility] Urobilinogen Negative Negative 04/20/2025 7:10 PM [facility] Urine (Urine, Voided) Non-Blood Collection / Unknown 04/20/2025 2:16 PM EST 04/20/2025 2:16 PM EST [facility] LAB URINE ORDERABLES Final Res ult Performing Organization Address City/[facility]/ZIP Co de Phone Number [address] [address] * (ABNORMAL) Urine Sediment (04/20/2025 2:16 PM EST) WBC 6-9 0 - 9 /hpf 04/20/2025 9:41 PM [facility] RBC 0-2 0 - 2 /hpf 04/20/2025 9:41 PM [facility] Squamous Epithelial Cells 3-5(A) Not Present /hpf 04/20/2025 9:41 PM [facility] Urine (Urine, Voided) Non-Blood Collection / Unknown 04/20/2025 2:16 PM EST 04/20/2025 2:16 PM EST [facility] LAB URINE ORDERABLES Final Res ult Performing Organization Address City/[facility]/ZIP Co de Phone Number [address] [address] * (ABNORMAL) Comprehensive Metabolic Panel (CMP) (04/20/2025 1:54 PM EST) Sodium 139 136 - 145 mmol/L 04/20/2025 7:17 PM [facility] Potassium 3.7 3.4 - 5.1 mmol/L 04/20/2025 7:17 PM [facility] Chloride 101 98 - 107 mmol/L 04/20/2025 7:17 PM [facility] CO2 22 20 - 31 mmol/L 04/20/2025 7:17 PM [facility] Anion Gap 16 3 - 17 mmol/L 04/20/2025 7:17 PM [facility] BUN 11 6 - 23 mg/dL 04/20/2025 7:17 PM [facility] Creatinine 0.70 0.50 - 1.00 mg/dL 04/20/2025 7:17 PM [facility] eGFR 122 >59 mL/min/1.7 3m2 04/20/2025 7:17 PM [facility] Comment:Estimated glomerular filtration rate calculated using the CKD-EPI refit equation. Glucose 144(H) 70 - 99 mg/dL 04/20/2025 7:17 PM [facility] Calcium 9.6 8.5 - 10.5 mg/dL 04/20/2025 7:17 PM [facility] AST 18 <33 U/L 04/20/2025 7:17 PM [facility] ALT 17 <34 U/L 04/20/2025 7:17 PM [facility] Alkaline Phosphatase 71 40 - 130 U/L 04/20/2025 7:17 PM [facility] Bilirubin, Total 0.2 0.0 - 1.2 mg/dL 04/20/2025 7:17 PM [facility] Total Protein 7.5 6.4 - 8.3 g/dL 04/20/2025 7:17 PM [facility] Albumin 4.7 3.5 - 5.2 g/dL 04/20/2025 7:17 PM [facility] Globulin 2.8 1.9 - 4.1 g/dL 04/20/2025 7:17 PM [facility] Blood (Blood) Venipuncture / Unknown 04/20/2025 1:54 PM EST 04/20/2025 1:55 PM EST us Anselmo Barnett DO LAB BLOOD BKR ORDERABLES Final Result [facility] [address] [place] [address] * CBC and Differential (04/20/2025 1:54 PM EST) WBC 6.52 4.00 - 11.00 K/uL 04/20/2025 6:36 PM [facility] RBC 5.00 4.00 - 5.20 M/uL 04/20/2025 6:36 PM [facility] Hemoglobin 14.0 >6.0 - <21.0 g/dL 04/20/2025 6:36 PM [facility] Hematocrit 43.0 36.0 - 46.0 % 04/20/2025 6:36 PM [facility] MCV 86.0 80.0 - 100.0 fL 04/20/2025 6:36 PM [facility] MCH 28.0 27.0 - 31.0 pg 04/20/2025 6:36 PM [facility] MCHC 32.6 32.0 - 36.0 g/dL 04/20/2025 6:36 PM [facility] MPV 11.1 8.4 - 12.0 fL 04/20/2025 6:36 PM [facility] RDW-CV 12.6 11.5 - 14.5 % 04/20/2025 6:36 PM [facility] PLT 209 150 - 450 K/uL 04/20/2025 6:36 PM [facility] Neutrophils 63.9 % 04/20/2025 6:36 PM [facility] Lymphocytes 28.4 % 04/20/2025 6:36 PM [facility] Monocytes 5.8 % 04/20/2025 6:36 PM [facility] Eosinophils 1.1 % 04/20/2025 6:36 PM [facility] Basophils 0.6 % 04/20/2025 6:36 PM [facility] Imm Grans 0.2 % 04/20/2025 6:36 PM [facility] NRBC 0.0 <=0.0 /100 WBCs 04/20/2025 6:36 PM [facility] Absolute Neutrophils 4.17 1.92 - 7.60 K/uL 04/20/2025 6:36 PM [facility] Absolute Lymphocytes 1.85 0.72 - 4.10 K/uL 04/20/2025 6:36 PM [facility] Absolute Monocytes 0.38 0.16 - 1.10 K/uL 04/20/2025 6:36 PM [facility] Absolute Eosinophils 0.07 0.00 - 0.50 K/uL 04/20/2025 6:36 PM [facility] Absolute Basophils 0.04 0.00 - 0.15 K/uL 04/20/2025 6:36 PM [facility] Absolute Imm Grans 0.01 0.00 - 0.09 K/uL 04/20/2025 6:36 PM [facility] Absolute NRBC 0.00 <=0.00 K cells/uL 04/20/2025 6:36 PM [facility] Absolute Neutrophils 4.17 1.92 - 7.60 K/uL 04/20/2025 6:36 PM [facility] Comment:Automated cell count . Manual ANC may differ if performed. Diff Type Auto 04/20/2025 6:36 PM [facility] Blood (Blood) Venipuncture / Unknown 04/20/2025 1:54 PM EST 04/20/2025 1:55 PM EST Anselmo Barnett DO LAB BLOOD BKR ORDERABLES Final Result Performing Organization Address City/State/[facility] Co de Phone Number [address] [address] * Thyroid Stimulating Hormone (TSH), with Reflex (04/20/2025 1:54 PM EST) TSH 1.37 0.40 - 5.00 uIU/mL 04/20/2025 7:17 PM [facility] Blood (Blood) Venipuncture / Unknown 04/20/2025 1:54 PM EST 04/20/2025 1:55 PM EST [facility] LAB BLOOD BKR ORDERABLES Final Result Performing Organization Address [facility]/ZIP Co de Phone Number [address] [address] * Iron and Total Iron Binding Capacity (Iron/TIBC) (04/20/2025 1:54 PM EST) Iron 65 28 - 170 ug/dL 04/20/2025 7:17 PM [facility] Total Iron-Binding Capacity (TIBC) 293 220 - 460 ug/dL 04/20/2025 7:17 PM [facility] Transferrin Saturation 22 14 - 50 % 04/20/2025 7:17 PM [facility] Blood (Blood) Venipuncture / Unknown 04/20/2025 1:54 PM EST 04/20/2025 1:55 PM EST [facility] LAB BLOOD BKR ORDERABLES Final Result Performing Organization Address [facility]/ZIP Co de Phone Number [address] [phone] * 25-OH Vitamin D (04/20/2025 1:54 PM EST) 25-OH Vitamin D, Total 36 20 - 50 ng/mL 04/20/2025 7:20 PM [facility] Comment: Severe deficiency: <10 ng/mL Mild to moderate deficiency: 10-19 ng/mL Optimum levels: 20-50 ng/mL Increased risk of hypercalciuria: 51-80 ng/mL Possible toxicity: >80 ng/mL Blood (Blood) Venipuncture / Unknown 04/20/2025 1:54 PM EST 04/20/2025 1:55 PM EST [facility] LAB BLOOD BKR ORDERABLES Final Result Performing Organization Address City/[facility]/ZIP Co de Phone Number [address] [address] * Folate (04/20/2025 1:54 PM EST) Folic Acid 14.4 >4.7 ng/mL 04/20/2025 7:20 PM EST [facility] Blood (Blood) Venipuncture / Unknown 04/20/2025 1:54 PM EST 04/20/2025 1:55 PM EST [facility]LOOD BKR ORDERABLES Final Result Performing Organization Address City/[facility]/ZIP Co de Phone Number [address] [phone] * Ferritin (04/20/2025 1:54 PM EST) Pathologist [facility] [place] Ferritin 33 30 - 150 ug/L 04/20/2025 7:17 PM EST [facility] Blood (Blood) Venipuncture / Unknown 04/20/2025 1:54 PM EST 04/20/2025 1:55 PM EST [facility] [facility] LAB BLOOD BKR ORDERABLES Final Result Performing Organization Address [facility]/ZIP Co de Phone Number [address] [phone] * Vitamin B12 (04/20/2025 1:54 PM EST) Pathologist [facility] [place] Vitamin B12 354 232 - 1,245 pg/mL 04/20/2025 7:26 PM EST [facility] Blood (Blood) Venipuncture / Unknown 04/20/2025 1:54 PM EST 04/20/2025 1:55 PM EST [facility] LAB BLOOD BKR ORDERABLES Final Result Performing Organization Address City/[facility]/ZIP Co de Phone Number [address] [phone] from Last 3 Months Insurance [facility] Care Teams Veneer Department Manager Relationship Specialty Start Date End Date Justo Sepulveda DO [address] [place] [address], [address] [place] [address] [email or web address] PCP - General Internal Medicine 12/30/21 Azalia Iraheta FNP [address] [place] [phone] [email or web address] Nurse Practitioner Family Medicine 06/28/21 Additional Source Comments The information contained in this document represents components of the legal health record. It is not the complete legal health record.[facility]
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
[2025-05-22 08:29] VITALS: BMI 27.0
[2025-05-22] MEDS: Lactated Ringers 1,000 ML 100 ML IVCONT (08:42)
[2025-05-22 08:48] LABS: UPreg QC Valid YES
--- NOTE | 2025-05-22 08:55 | PC.NURSE ---
Dr. Rose notified patient that her test is positive and today's procedure is cancelled. IV removed. Patient left with all belongings and signed belongings chart.
== END ==
LOC: HO.SSS 07:57
PROVIDERS: PCP Hospitalist; Visit Provider Obstetrics & Gynecology
DX: N87.0 Mild cervical dysplasia (principal); Z53.09 Procedure and treatment not carried out because of other contraindication; Z32.01 Encounter for pregnancy test, result positive
CPT/HCPCS: 81025